=== PATIENT | female | born 1965 | race Two or more races ===

== ENCOUNTER → 2024-03-29 | Outpatient (CLI) | payer BC, SELFPAY ==
--- NOTE | 2024-03-29 16:15 | XR_ITS ---
Examination: Ultrasound soft tissue head and neck TECHNIQUE: Grayscale sonographic images soft tissue head neck Exam date and time: March 29, 2024 1602 hours INDICATIONS: Palpable lump behind the right ear noticed beginning 5 months ago FINDINGS: Cystic mass with internal debris, 2.5 x 2.1 x 1.7 cm posterior to the ear at the area of concern Adjacent lymph node 8 x 7 x 6 mm IMPRESSION: Cystic mass with internal debris posterior to the right ear, 2.5 x 2.1 x 1.7 cm, appearance is most suggestive of benign cyst, infected cyst not excluded
== END | disposition home or self-care (01) ==
PROVIDERS: PCP Internal Medicine; Referring Provider Internal Medicine; Visit Provider Internal Medicine
DX: H93.8X1 Other specified disorders of right ear (principal)
CPT/HCPCS: 76536

== ENCOUNTER → 2024-06-06 | Outpatient (CLI) | payer BC, SELFPAY ==
[2024-06-06 11:29] LABS: Basophils # (Auto) 0.1 Thou/mm3 (0.0-0.2); Basophils % (Auto) 1 % (0-2.5); Eosinophils # (Auto) 0.2 Thou/mm3 (0.0-0.5); Eosinophils % (Auto) 2 % (0-10); Hematocrit 41.8 % (36.0-46.0); Immature Granulocytes % (Auto) 0 % (0-0); Immature Granulocytes Auto 0.03 Thou/mm3 (0.00-0.00); Lymphocytes # (Auto) 3.3 Thou/mm3 (1.0-4.8); Lymphocytes % (Auto) 35 % (10-50); Mean Corpuscular HGB Conc 33.5 g/dl (31.0-37.0); Mean Corpuscular Hemoglobin 29.1 pg (25.0-35.0); Mean Corpuscular Volume 87 fL (80-100); Monocytes # (Auto) 0.8 Thou/mm3 (0.0-0.8); Monocytes % (Auto) 8 % (0-12); Neutrophils % (Auto) 54 % (37-80); Nucleated Red Blood Cell % 0 /100 WBC (0); Platelet Count 239 Thou/mm3 (140-440); RDW Standard Deviation 45.4 fL (36.4-46.3); Red Blood Count 4.81 Miln/mm3 (4.00-5.20); White Blood Count 9.4 Thou/mm3 (3.6-11.0)
[2024-06-06 11:36] LABS: Glucose Estimated Average 140 mg/dL (80-131); Hemoglobin A1C 6.5 % Hgb (4.8-6.0)
[2024-06-06 11:52] LABS: Alanine Aminotransferase 117 U/L (10-49); Albumin, Serum 4.3 gm/dL (3.5-5.0); Albumin/Globulin Ratio 1.6 (1.2-2.2); Alkaline Phosphatase 80 U/L (46-116); Anion Gap 9 (7-16); Aspartate Amino Transferase 49 U/L (0-34); BUN/Creatinine Ratio 23 Ratio (12-20); Bilirubin,Total 0.4 mg/dL (0.3-1.2); Blood Urea Nitrogen 16 mg/dL (9-23); Carbon Dioxide 26.1 mMol/L (20.0-31.0); Cardiac Risk Estimate 4.4 RATIO (3.7-5.6); Chloride 106 mMol/L (98-107); Cholesterol 180 mg/dL (132-200); Creatinine (Component) 0.7 mg/dL (0.6-1.3); Globulin 2.7 gm/dL (2.3-3.5); Glucose 93 mg/dL (74-106); HDL Cholesterol 41 mg/dL (40-60); LDL Cholesterol,Calculated 114 mg/dL (0-130); Osmolality,Calculated 282 (275-295); Potassium 4.4 mMol/L (3.4-5.1); Sodium 141 mMol/L (136-145); Triglycerides 126 mg/dL (30-150); eGFR > 60 See Note
[2024-06-06 13:56] LABS: Creatinine MALB Rnd Ur 123 mg/dL (30-125); Microalbumin Creat Ratio 4 mg/gCrea (<30); Microalbumin, Random Urine 5 mg/L (0-300)
== END | disposition home or self-care (01) ==
LOC: COPL 10:46
PROVIDERS: PCP Internal Medicine; Referring Provider Internal Medicine; Visit Provider Internal Medicine
DX: E11.65 Type 2 diabetes mellitus with hyperglycemia (principal); R22.1 Localized swelling, mass and lump, neck; R74.01 Elevation of levels of liver transaminase levels
CPT/HCPCS: 36415; 80053; 80061; 82043; 82570; 83036; 85025